=== PATIENT | female | born 1980 | race Caucasian/White ===

== ENCOUNTER 2021-02-14 11:26 | Emergency (ER) | payer MEDICAID ==
[~2021-02-14] VITALS: Ht 167.6 cm; Wt 100.0 kg
[~2021-02-14 11:26] MED LIST: NO HOME MEDS; TRAM50TA2 PO
[2021-02-14 13:59] LABS: BASOPHILS % (AUTO) 0.3 % (0-1); EOSINOPHILS # (AUTO) 0.2 X10'3 (0-0.9); EOSINOPHILS % (AUTO) 1.8 % (0-6); HEMATOCRIT 41.7 % (35.0-45.0); HEMOGLOBIN 14.4 g/dl (12.0-16.0); LYMPHOCYTES # (AUTO) 2.3 X10'3 (1.1-4.8); LYMPHOCYTES % (AUTO) 24.3 % (21-51); MEAN CORPUSCULAR HEMOGLOBIN 31.4 PG (27.0-31.0); MEAN CORPUSCULAR HGB CONC 34.6 g/dL (33.0-36.5); MEAN CORPUSCULAR VOLUME 90.7 FL (78-98); MEAN PLATELET VOLUME 9.1 FL (7.4-10.4); MONOCYTES # (AUTO) 0.7 X10'3 (0-0.9); NEUTROPHILS # (AUTO) 6.2 X10'3 (1.8-7.7); NEUTROPHILS % (AUTO) 65.6 % (42-75); PLATELET COUNT 243 X10'3 (140-440); RED CELL DISTRIBUTION WIDTH 12.3 % (11.5-14.5); WHITE BLOOD COUNT 9.4 X10'3 (4.5-11.0)
[2021-02-14 14:11] VITALS: BP 154/95
[2021-02-14 14:15] LABS: ALANINE AMINOTRANSFERASE 27 U/L (12-78); ALBUMIN 3.6 G/DL (3.4-5.0); ALBUMIN/GLOBULIN RATIO 0.8 (1.1-1.5); ALKALINE PHOSPHATASE 81 IU/L (46-116); ANION GAP 7 (8-16); ASPARTATE AMINO TRANSFERASE 12 U/L (10-37); BILIRUBIN,TOTAL 0.3 MG/DL (0.1-1.0); BLOOD UREA NITROGEN 5 MG/DL (7-18); BUN/CREATININE RATIO 6.8 (6.6-38.0); CALCIUM 8.9 MG/DL (8.5-10.1); CHLORIDE 100 MMOL/L (99-107); CREATININE 0.73 MG/DL (0.40-0.90); GLUCOSE 101 MG/DL (70-104); POTASSIUM 3.7 MMOL/L (3.5-5.1); SODIUM 134 MMOL/L (135-145); TOTAL CARBON DIOXIDE 27.1 MMOL/L (24-32); TOTAL PROTEIN 8.2 G/DL (6.4-8.2); eGFR 89 ML/MIN
[2021-02-14 14:21] LABS: BETA HCG,QUANTITATIVE < 1.0 mIU/ml
[2021-02-14] MEDS ORDERED: iohexol 350MG/ML 100ml bottle IV ONE (14:21)
--- NOTE | 2021-02-14 14:47 | NUR ---
PIV STARTED IN LT AC WITH 20G FOR CTA. PT TO CT
[2021-02-14] MEDS ORDERED: AZIT250T83 PO (16:20)
== END 2021-02-14 16:35 | disposition home or self-care (01) ==
LOC: ER 11:26
DX: Z20.822 Contact with and (suspected) exposure to COVID-19 (principal); R06.02 Shortness of breath; R05.9 Cough, unspecified; R51.9 Headache, unspecified; R07.89 Other chest pain; F17.200 Nicotine dependence, unspecified, uncomplicated; Z79.2 Long term (current) use of antibiotics
CPT/HCPCS: 36415; 71045; 71275; 80053; 84702; 85025; 87502; 87503; 87635; 99285; C9803; Q9967; U0003; U0005

== ENCOUNTER 2024-04-15 16:42 | Inpatient (IN) | payer MEDICAID ==
[~2024-04-15] VITALS: Ht 165.1 cm; Wt 111.5 kg
[2024-04-15] MEDS: aspirin 81mg tab.chew PO ONE (17:50)
[2024-04-15] MEDS: nitroGLYCERIN 0.4mg/hour patch TD ONE (17:50)
[2024-04-15 18:02] LABS: BASOPHILS % (AUTO) 0.3 % (0-1); EOSINOPHILS # (AUTO) 0.2 X10'3 (0-0.9); EOSINOPHILS % (AUTO) 1.9 % (0-6); HEMATOCRIT 40.9 % (35.0-45.0); LYMPHOCYTES # (AUTO) 2.7 X10'3 (1.1-4.8); LYMPHOCYTES % (AUTO) 32.7 % (21-51); MEAN CORPUSCULAR HGB CONC 34.1 g/dL (33.0-36.5); MEAN PLATELET VOLUME 9.3 FL (7.4-10.4); MONOCYTES # (AUTO) 0.9 X10'3 (0-0.9); MONOCYTES % (AUTO) 11.5 % (2-12); NEUTROPHILS # (AUTO) 4.4 X10'3 (1.8-7.7); NEUTROPHILS % (AUTO) 53.6 % (42-75); PLATELET COUNT 187 X10'3 (140-440); RED CELL DISTRIBUTION WIDTH 13.3 % (11.5-14.5); WHITE BLOOD COUNT 8.2 X10'3 (4.5-11.0)
[2024-04-15 18:15] LABS: APTT 27 SECONDS (22-32); PROTHROMBIN TIME 10.3 SECONDS (9.0-12.0)
[2024-04-15 18:30] LABS: ALANINE AMINOTRANSFERASE 32 U/L (12-78); ALBUMIN 3.3 G/DL (3.4-5.0); ALBUMIN/GLOBULIN RATIO 0.8 (1.1-1.5); ALKALINE PHOSPHATASE 73 IU/L (46-116); ANION GAP 9 (8-16); ASPARTATE AMINO TRANSFERASE 9 U/L (10-37); BILIRUBIN,TOTAL 0.2 MG/DL (0.1-1.0); BLOOD UREA NITROGEN 10 MG/DL (7-18); BUN/CREATININE RATIO 13.3 (10.0-20.0); CALCIUM 8.3 MG/DL (8.5-10.1); CHLORIDE 106 MMOL/L (99-107); CREATININE 0.75 MG/DL (0.40-0.90); GLUCOSE 110 MG/DL (70-104); POTASSIUM 3.7 MMOL/L (3.5-5.1); SODIUM 141 MMOL/L (135-145); TOTAL CARBON DIOXIDE 26.3 MMOL/L (24-32); TOTAL PROTEIN 7.2 G/DL (6.4-8.2); eCRCL 89 ML/MIN; eGFR 85 ML/MIN
[2024-04-15 18:37] LABS: ETHANOL < 10 MG/DL (<10); MAGNESIUM 2.1 MG/DL (1.5-2.4); PRO BRAIN NATRIURETIC PEPTIDE 44 PG/ML (0-125)
[2024-04-15] MEDS: acetaminophen 325mg tablet PO ONE (19:10)
[2024-04-15] MEDS ORDERED: magnesium hydroxide 30ml (MOM) UD suspension PO PRN (19:30)
[2024-04-15] MEDS ORDERED: magnesium sulf-water 4G/100mL 100 ML IV PRN (19:30)
[2024-04-15] MEDS ORDERED: potassium Cl 20 mEq SR tablet PO PRN ×2 (19:30)
[2024-04-15] MEDS ORDERED: potassium Cl 40MEQ/1/2NS 520ml 520 ML IV PRN (19:30)
[2024-04-15] MEDS ORDERED: magnesium Cl slow-release 64mg tablet PO PRN (19:30)
[2024-04-15] MEDS ORDERED: mag hydrox/Alum hydrox/simeth 30ml oral suspension PO PRN (19:30)
[2024-04-15] MEDS ORDERED: ondansetron/PF 4mg/2ml inj IV PRN (19:30)
[2024-04-15] MEDS ORDERED: magnesium sulf-water 2g/50mL 50 ML IV PRN (19:30)
[2024-04-15] MEDS: K and/or MAG REPLACEMENT MC SCH (20:00)
[2024-04-15] MEDS: docusate sod 100mg capsule PO SCH (20:00)
[2024-04-15 20:01] LABS: URINE AMPHETAMINE SCREEN NEGATIVE (Neg); URINE BARBITUATE SCREEN NEGATIVE (Neg); URINE BENZODIAZEPINES SCREEN NEGATIVE (Neg); URINE CANNABINOID SCREEN NEGATIVE (Neg); URINE COCAINE SCREEN NEGATIVE (Neg); URINE METHADONE SCREEN NEGATIVE (Neg); URINE OPIATE SCREEN NEGATIVE (Neg); URINE PHENCYCLIDINE SCREEN NEGATIVE (Neg)
[2024-04-15] MEDS: normal saline 1000ml 1,000 ML IV SCH (20:45)
[2024-04-15] MEDS ORDERED: nitroGLYCERIN 0.4mg SUBLingual tab SL PRN ×2 (20:45)
[2024-04-15] MEDS ORDERED: metoprolol tartrate 1mg/ml inj IV PRN (20:45)
[2024-04-15] MEDS ORDERED: aminophylline 250mg/10ml inj. IV PRN (20:45)
[2024-04-15 21:21] LABS: CHOL/HDL RATIO 4.3 (0.00-4.99); CHOLESTEROL 139 MG/DL (0-200); HDL CHOLESTEROL 32 MG/DL (35-60); LDL CHOLESTEROL 94 MG/DL (50-100); TRIGLYCERIDES 78 MG/DL (20-135)
[2024-04-15 21:31] LABS: HEMOGLOBIN A1C 5.6 % (4.5-6.2)
[2024-04-16] VITALS (14 sets, daily range): BP systolic 107–122; BP diastolic 54–74; PULSE 75–109; RESP 16–25; TEMP 97.7–98; O2SAT 95–100
[2024-04-16] MEDS: acetaminophen 325mg tablet PO PRN (04:46)
[2024-04-16] MEDS: atorvastatin 20mg tablet PO SCH (07:04)
[2024-04-16] MEDS: metoprolol succinate 25mg (24-HOUR) SR. Tablet PO SCH (07:04)
[2024-04-16] MEDS: pantoprazole 40mg Tablet.DR PO SCH (07:04)
[2024-04-16] MEDS: aspirin 81mg tab.chew PO SCH (07:05)
[2024-04-16] MEDS: heparin, porcine 5000 units/ml vial SQ SCH (07:05)
[2024-04-16] MEDS: nicotine 14mg patch - 24hr TD SCH (07:05)
[2024-04-16 07:41] LABS: BASOPHILS % (AUTO) 0.3 % (0-1); EOSINOPHILS # (AUTO) 0.1 X10'3 (0-0.9); HEMATOCRIT 40.4 % (35.0-45.0); HEMOGLOBIN 13.6 g/dl (12.0-16.0); LYMPHOCYTES # (AUTO) 2.2 X10'3 (1.1-4.8); MEAN CORPUSCULAR HEMOGLOBIN 30.6 PG (27.0-31.0); MEAN CORPUSCULAR HGB CONC 33.7 g/dL (33.0-36.5); MEAN PLATELET VOLUME 9.4 FL (7.4-10.4); MONOCYTES # (AUTO) 0.7 X10'3 (0-0.9); MONOCYTES % (AUTO) 9.3 % (2-12); NEUTROPHILS # (AUTO) 4.2 X10'3 (1.8-7.7); NEUTROPHILS % (AUTO) 58.4 % (42-75); PLATELET COUNT 174 X10'3 (140-440); RED BLOOD COUNT 4.44 X10'6 (4.20-5.60); RED CELL DISTRIBUTION WIDTH 12.8 % (11.5-14.5); WHITE BLOOD COUNT 7.2 X10'3 (4.5-11.0)
[2024-04-16 08:11] LABS: ALANINE AMINOTRANSFERASE 29 U/L (12-78); ALBUMIN 3.1 G/DL (3.4-5.0); ALBUMIN/GLOBULIN RATIO 0.8 (1.1-1.5); ALKALINE PHOSPHATASE 61 IU/L (46-116); ANION GAP 9 (8-16); ASPARTATE AMINO TRANSFERASE 13 U/L (10-37); BILIRUBIN,TOTAL 0.4 MG/DL (0.1-1.0); BLOOD UREA NITROGEN 8 MG/DL (7-18); BUN/CREATININE RATIO 11.8 (10.0-20.0); CHLORIDE 107 MMOL/L (99-107); CREATININE 0.68 MG/DL (0.40-0.90); GLUCOSE 95 MG/DL (70-104); MAGNESIUM 2.1 MG/DL (1.5-2.4); POTASSIUM 3.8 MMOL/L (3.5-5.1); SODIUM 142 MMOL/L (135-145); TOTAL CARBON DIOXIDE 25.8 MMOL/L (24-32); TOTAL PROTEIN 6.8 G/DL (6.4-8.2); eCRCL 98 ML/MIN; eGFR > 90 ML/MIN
[2024-04-16] MEDS ORDERED: aminophylline 500mg/20ml vial IV PRN (08:29)
[2024-04-16] MEDS: regadenoson 0.4mg/5ml syringe IV PRN (09:14)
[2024-04-16] MEDS: temazepam 15mg capsule PO ONE (20:36)
[2024-04-17 02:00] VITALS: BP 102/55; PULSE 76; RESP 22; TEMP 97.1; O2SAT 98
[2024-04-17 06:00] VITALS: BP 120/75; PULSE 96; RESP 20; TEMP 97.8; O2SAT 97
[2024-04-17 07:15] LABS: BASOPHILS % (AUTO) 0.3 % (0-1); EOSINOPHILS # (AUTO) 0.1 X10'3 (0-0.9); EOSINOPHILS % (AUTO) 2.3 % (0-6); HEMATOCRIT 41.8 % (35.0-45.0); HEMOGLOBIN 14.2 g/dl (12.0-16.0); MEAN CORPUSCULAR HGB CONC 34.1 g/dL (33.0-36.5); MEAN PLATELET VOLUME 9.3 FL (7.4-10.4); MONOCYTES # (AUTO) 0.5 X10'3 (0-0.9); MONOCYTES % (AUTO) 7.8 % (2-12); NEUTROPHILS # (AUTO) 3.8 X10'3 (1.8-7.7); NEUTROPHILS % (AUTO) 58.6 % (42-75); PLATELET COUNT 191 X10'3 (140-440); RED BLOOD COUNT 4.59 X10'6 (4.20-5.60); RED CELL DISTRIBUTION WIDTH 12.9 % (11.5-14.5); WHITE BLOOD COUNT 6.4 X10'3 (4.5-11.0)
[2024-04-17 07:44] LABS: ALANINE AMINOTRANSFERASE 25 U/L (12-78); ALBUMIN 3.1 G/DL (3.4-5.0); ALBUMIN/GLOBULIN RATIO 0.8 (1.1-1.5); ALKALINE PHOSPHATASE 62 IU/L (46-116); ANION GAP 6 (8-16); ASPARTATE AMINO TRANSFERASE 16 U/L (10-37); BILIRUBIN,TOTAL 0.2 MG/DL (0.1-1.0); BLOOD UREA NITROGEN 9 MG/DL (7-18); BUN/CREATININE RATIO 11.7 (10.0-20.0); CALCIUM 8.4 MG/DL (8.5-10.1); CHLORIDE 106 MMOL/L (99-107); CREATININE 0.77 MG/DL (0.40-0.90); GLUCOSE 101 MG/DL (70-104); MAGNESIUM 1.9 MG/DL (1.5-2.4); POTASSIUM 4.4 MMOL/L (3.5-5.1); SODIUM 138 MMOL/L (135-145); TOTAL CARBON DIOXIDE 26.1 MMOL/L (24-32); TOTAL PROTEIN 6.9 G/DL (6.4-8.2); eCRCL 87 ML/MIN; eGFR 83 ML/MIN
[2024-04-17 08:00] VITALS: RESP 20; O2SAT 97
[2024-04-17 11:00] VITALS: BP 114/70; PULSE 79; RESP 18; TEMP 96.9; O2SAT 96
== END 2024-04-17 11:50 | disposition home or self-care (01) | DRG 198 ==
LOC: ER 16:43 → ED HOLD 19:36 → EDBEDREQ 04-16 01:18 → PCU 3S 04-16 02:25
PROVIDERS: ADMIT Internal Medicine Critical Care Medicine; ATTEND Family Medicine
PROC: 4A02XM4 Measurement of Cardiac Total Activity, External Approach (ICD-10-PCS; principal; 2024-04-16)
PROC: 3E033HZ Introduction of Radioactive Substance into Peripheral Vein, Percutaneous Approach (ICD-10-PCS; 2024-04-16)
DX: R07.89 Other chest pain (principal); I20.0 Unstable angina; E66.01 Morbid (severe) obesity due to excess calories; F17.210 Nicotine dependence, cigarettes, uncomplicated; R73.9 Hyperglycemia, unspecified; Z90.49 Acquired absence of other specified parts of digestive tract; Z68.41 Body mass index [BMI] 40.0-44.9, adult
CPT/HCPCS: 36415; 71045; 78452; 80053; 80061; 80305; 80320; 83036; 83735; 83880; 84484; 85025; 85610; 85730; 87081; 93005; 93017; 93306; 99285; A9500; G0378; J1644; J2785; J7030

== ENCOUNTER 2024-04-21 15:57 | Emergency (ER) | payer MEDICAID ==
[~2024-04-21] VITALS: Ht 165.1 cm; Wt 110.0 kg
[2024-04-21 16:24] VITALS: TEMP 98.3
[2024-04-21 17:02] LABS: BASOPHILS % (AUTO) 0.4 % (0-1); EOSINOPHILS # (AUTO) 0.1 X10'3 (0-0.9); EOSINOPHILS % (AUTO) 1.8 % (0-6); HEMATOCRIT 45.7 % (35.0-45.0); HEMOGLOBIN 15.4 g/dl (12.0-16.0); LYMPHOCYTES # (AUTO) 2.4 X10'3 (1.1-4.8); LYMPHOCYTES % (AUTO) 35.2 % (21-51); MEAN CORPUSCULAR HEMOGLOBIN 30.4 PG (27.0-31.0); MEAN CORPUSCULAR HGB CONC 33.8 g/dL (33.0-36.5); MEAN CORPUSCULAR VOLUME 90.1 FL (78-98); MEAN PLATELET VOLUME 9.1 FL (7.4-10.4); MONOCYTES # (AUTO) 0.5 X10'3 (0-0.9); MONOCYTES % (AUTO) 7.2 % (2-12); NEUTROPHILS # (AUTO) 3.8 X10'3 (1.8-7.7); NEUTROPHILS % (AUTO) 55.4 % (42-75); PLATELET COUNT 235 X10'3 (140-440); RED BLOOD COUNT 5.07 X10'6 (4.20-5.60); RED CELL DISTRIBUTION WIDTH 13.1 % (11.5-14.5); WHITE BLOOD COUNT 6.9 X10'3 (4.5-11.0)
[2024-04-21 17:22] LABS: ALANINE AMINOTRANSFERASE 31 U/L (12-78); ALBUMIN 3.7 G/DL (3.4-5.0); ALBUMIN/GLOBULIN RATIO 0.9 (1.1-1.5); ALKALINE PHOSPHATASE 82 IU/L (46-116); ANION GAP 10 (8-16); ASPARTATE AMINO TRANSFERASE 25 U/L (10-37); BILIRUBIN,TOTAL 0.3 MG/DL (0.1-1.0); BLOOD UREA NITROGEN 12 MG/DL (7-18); BUN/CREATININE RATIO 13.6 (10.0-20.0); CALCIUM 8.6 MG/DL (8.5-10.1); CHLORIDE 101 MMOL/L (99-107); CREATININE 0.88 MG/DL (0.40-0.90); GLUCOSE 98 MG/DL (70-104); POTASSIUM 3.7 MMOL/L (3.5-5.1); SODIUM 136 MMOL/L (135-145); TOTAL CARBON DIOXIDE 24.7 MMOL/L (24-32); TOTAL PROTEIN 7.9 G/DL (6.4-8.2); eCRCL 76 ML/MIN; eGFR 71 ML/MIN
[2024-04-21 17:29] LABS: PRO BRAIN NATRIURETIC PEPTIDE < 30 PG/ML (0-125)
[2024-04-21 18:09] VITALS: BP 155/108; PULSE 82; RESP 17; O2SAT 98
== END 2024-04-21 18:28 | disposition home or self-care (01) ==
LOC: ER 15:58
DX: R53.83 Other fatigue (principal); R42 Dizziness and giddiness; R53.81 Other malaise; F17.210 Nicotine dependence, cigarettes, uncomplicated
CPT/HCPCS: 36415; 71045; 80053; 83880; 84484; 85025; 93005; 99285

== ENCOUNTER 2024-09-15 07:59 | Emergency (ER) | payer MEDICAID ==
[~2024-09-15] VITALS: Ht 162.6 cm; Wt 112.7 kg
[2024-09-15 08:02] VITALS: BP 155/108; PULSE 117; RESP 18; O2SAT 98
--- NOTE | 2024-09-15 08:45 | RADIOLOGY REPORT ---
CLINICAL INDICATION: ANKLE PAIN TECHNIQUE: 3 radiographic views of the right ankle were obtained. Comparison: None FINDINGS/IMPRESSION: There is no evidence of acute fracture or dislocation. The visualized joint space is well maintained. The alignment is anatomical. There is no radiopaque foreign body.
--- NOTE | 2024-09-15 09:11 | Physician Documentation ---
History of Present Illness ~ Chief Complaint: Ankle pain Stated Complaint: FALL Time Seen by MD: 08:10 Primary Medical Doctor: Shashank Szymanski HPI Fell from porch last night, injured ankle, reports R ankle swelling and pain. No other injury. Tetanus witin 5 years: No Medication Reconciliation Allergies: Coded Allergies: No Known Allergies (Unverified , 09/15/24) Scheduled PRN Tramadol Hcl (Tramadol Hcl), 50 MG PO Q4H PRN for pain Miscellaneous Medications Home Med List (No Home Medications), (Reported) Past Medical History Past Medical History: No Pertinent History Patient History: Patient reports no known family medical history. Alcohol Use: Rarely Drug Use: none Lives with: Other Lives In: Home Occupation: employed Review of Systems All Other Systems at this time: Reviewed and Negative Physical Exam Vital Signs: RN Vital Signs have been reviewed: Yes, Temperature: 97.8, Source: Temporal, Heart Rate: 117, Respiratory Rate: 18, BP: 155/108, Pulse Oximetry: 98, Weight: 112.650 Oxygen Flow Rate: 0 Physical Exam HEENT: PERRL, moist oral mucosa, EOMI Pulmonary: No respiratory distress MSK: no deformity; tenderness and swelling to anterolateral R ankle Skin: w/d/i, no rash Neuro: alert, nonfocal Psych: normal affect Progress Results/Orders Results/Orders Orders - AUTUMN MCPHERSON MD Ankle, Complete(3vw Min) (09/15/24 08:07) Completed Orders - AUTUMN MCPHERSON MD Ankle, Complete(3vw Min) (09/15/24 08:07) Vital Signs 09/15/24 08:02 Temp 97.8 Pulse 117 Resp 18 B/P (MAP) 155/108 Pulse Ox 98 O2 Flow Rate 0 Medical Decision Making Findings 44 year old female with ankle injury. Xray interpreted by me demonstrated no acute fracture or dislocation of R ankle. Return precautions discussed. Additional Comment Ddx = fracture, dislocation, sprain, contusion Departure Disposition: 01 HOME / SELF CARE / HOMELESS Impression: Primary Impression: Sprain of ankle Condition: Stable Discharge Instructions: Ankle Sprain Referrals: NO PRIMARY CARE PROVIDER (PCP) Education Educated: Patient, Family Educated regarding: diagnosis, treatment, prognosis, need for follow up Signature Scribe Signature: . Attestation: . AUTUMN MCPHERSON MD Sep 15, 2024 09:11
[2024-09-15 09:21] VITALS: TEMP 97.8
== END 2024-09-15 09:26 | disposition home or self-care (01) ==
LOC: ER 07:59
DX: S93.491A Sprain of other ligament of right ankle, initial encounter (principal); X58.XXXA Exposure to other specified factors, initial encounter; Y93.89 Activity, other specified; Y92.89 Other specified places as the place of occurrence of the external cause; Y99.8 Other external cause status
CPT/HCPCS: 73610; 99283